=== PATIENT | male | born 1985 | race Caucasian/White ===

== ENCOUNTER 2020-01-04 02:38 | Outpatient (CLI) | payer BC, SELFPAY ==
[2020-01-04 21:22] LABS: SARS-CoV-2 RNA PCR Negative
== END 2020-01-04 02:39 | disposition home or self-care (01) ==
LOC: ANHCOVIDDT 02:39
PROVIDERS: PCP Family Medicine; Visit Provider Internal Medicine Gastroenterology
DX: Z01.812 Encounter for preprocedural laboratory examination (principal); Z20.828 Contact with and (suspected) exposure to other viral communicable diseases
CPT/HCPCS: 87635; C9803; U0003

== ENCOUNTER 2020-01-07 01:39 | Day surgery (SDC) | payer BC, SELFPAY ==
[2020-01-01 13:04] VITALS: BMI 35.4
[2020-01-07 13:08] VITALS: BP 149/73; PULSE 82; RESP 16; TEMP 36.7; O2SAT 99
[2020-01-07] MEDS: LACTATED RINGERS 1,000 ML 150 ML IV CONT (13:10)
--- NOTE | 2020-01-07 13:10 | PM.HPGS ---
History of Present Illness History of Present Illness Consent: Risks, benefits, and alternatives have been discussed and questions answered. Patient agrees to proceed with procedure. Chief complaint: Gerd, Neoplasm Screening Narrative: Kristofer Rincon is a 34 year old male with belching better on omeprazole, also had rectal bleeding and mother had colon cancer. Review of Systems Constitutional: Constitutional: Denies headache(s) and Denies weakness Eyes: Eyes: Denies blurry vision ENT: Reports Normal hearing present, Denies headache(s) and Denies neck pain Cardiovascular: Cardiovascular: Denies chest pain and Denies dyspnea Respiratory: Respiratory: Denies dyspnea Gastrointestinal: Gastrointestinal: Reports no additional gastrointestinal complaints Genitourinary: Genitourinary: Denies dysuria Musculoskeletal: Musculoskeletal: Denies neck pain Integumentary/Breasts: Skin/Breast: Denies dry skin Neurologic: Reports Normal hearing present, Denies headache(s) and Denies weakness Psychiatric: Psychiatric: Denies anxiety Endocrine: Endocrine: Denies change in body appearance Hematologic/Lymphatic: Hematologic/Lymphatic: Denies easy bleeding Allergic/Immunologic: Allergic/Immunologic: Denies urticaria PMF Past Medical History Medical History (Updated 12/03/19 @ 09:47 by Azael Cruz MD) Acquired hypothyroidism Allergic rhinitis Asthma Dyslipidemia Eczema GERD (gastroesophageal reflux disease) HTN (hypertension) Obesity (BMI 30-39.9) BRINA (obstructive sleep apnea) Type 2 diabetes mellitus without complications Surgical History Surgical History (Updated 12/03/19 @ 09:13 by Maria Moulton CMA) History of hernia surgery Family History Family History Mother Hypertension Carcinoma of colon Diabetes mellitus Father Asthma Family history of diabetes mellitus in first degree relative Diabetes mellitus Other Family history of cardiovascular disease Family history of malignant neoplasm Social History Social History Smoking status: Never smoker Second hand tobacco smoke exposure: No Alcohol intake: never Substance use: never Substance use type: does not use Living arrangements: with family Gender identity (if verbalized by the patient): Male Spiritual care concerns: No Meds Home Medications and Allergies Home Medications Medication Instructions Recorded Confirmed Type blood-glucose meter #1 each 02/20/19 12/03/19 Rx albuterol sulfate 90 mcg/actuation 1 inhalation INHALATION Q4H PRN 03/10/19 01/01/20 History aerosol inhaler montelukast 10 mg tablet 10 mg PO DAILY #90 tablet 05/25/19 01/01/20 Rx rosuvastatin 10 mg tablet 10 mg PO DAILY #90 tablet 06/25/19 01/01/20 Rx levothyroxine 150 mcg tablet 150 mcg PO DAILY #30 tablet 09/07/19 01/07/20 Rx lisinopril 10 mg tablet 10 mg PO DAILY #30 tablet 09/07/19 01/01/20 Rx empagliflozin 25 mg tablet 25 mg PO QAM #30 tablet 10/20/19 01/01/20 Rx fluticasone furoate 100 1 inhalation INHALATION Q24H #60 10/21/19 01/01/20 Rx mcg-vilanterol 25 mcg/dose each inhalation powder metformin 500 mg tablet,extended 2,000 mg PO QPM #360 tablet 12/07/19 01/01/20 Rx release 24hr omeprazole 40 mg capsule,delayed 40 mg PO DAILY #30 cap 12/07/19 01/01/20 Rx release loratadine [Claritin] 10 mg PO DAILY 01/01/20 01/01/20 History multivitamin with minerals [All 1 tablet PO DAILY 01/01/20 01/01/20 History Purpose Multivitamin-Min] Allergies Allergy/AdvReac Type Severity Reaction Status Date / Time Honey Bee Allergy Mild Swelling Uncoded 01/07/20 13:07 Vital Signs Vital Signs - 24 hr 01/07/20 13:08 Temperature 98.1 F Pulse Rate 82 Respiratory Rate 16 Blood Pressure 149/73 H Pulse Oximetry 99 Exam Const: General: comfortable and no acute distress HENMT: General nose exam
--- NOTE | 2020-01-07 13:12 | WPDANESEPPF ---
Anes - Initial Pre Proc Eval Procedure: Operation Date: 01/07/20 14:00 Proposed Procedures p Esophagogastroduodenoscopy & Screening Colonoscopy - Azael Cruz MD Date/Time: 01/07/20 13:12 Surgeon: Azael Cruz MD Pre Op Diagnosis: Gerd, Neoplasm Screening Patient Data Age: 34 Gender: M Height: 5 ft 9 in Weight: 109.3 kg Last Vital Signs Temp 98.1 F 01/07/20 13:08 Pulse 82 01/07/20 13:08 Resp 16 01/07/20 13:08 BP 149/73 H 01/07/20 13:08 Pulse Ox 99 01/07/20 13:08 Allergies Allergy/AdvReac Type Severity Reaction Status Date / Time Honey Bee Allergy Mild Swelling Uncoded 01/07/20 13:07 Home Medications Medication Instructions Recorded Confirmed Type blood-glucose meter #1 each 02/20/19 12/03/19 Rx albuterol sulfate 90 mcg/actuation 1 inhalation INHALATION Q4H PRN 03/10/19 01/01/20 History aerosol inhaler montelukast 10 mg tablet 10 mg PO DAILY #90 tablet 05/25/19 01/01/20 Rx rosuvastatin 10 mg tablet 10 mg PO DAILY #90 tablet 06/25/19 01/01/20 Rx levothyroxine 150 mcg tablet 150 mcg PO DAILY #30 tablet 09/07/19 01/07/20 Rx lisinopril 10 mg tablet 10 mg PO DAILY #30 tablet 09/07/19 01/01/20 Rx empagliflozin 25 mg tablet 25 mg PO QAM #30 tablet 10/20/19 01/01/20 Rx fluticasone furoate 100 1 inhalation INHALATION Q24H #60 10/21/19 01/01/20 Rx mcg-vilanterol 25 mcg/dose each inhalation powder metformin 500 mg tablet,extended 2,000 mg PO QPM #360 tablet 12/07/19 01/01/20 Rx release 24hr omeprazole 40 mg capsule,delayed 40 mg PO DAILY #30 cap 12/07/19 01/01/20 Rx release loratadine [Claritin] 10 mg PO DAILY 01/01/20 01/01/20 History multivitamin with minerals [All 1 tablet PO DAILY 01/01/20 01/01/20 History Purpose Multivitamin-Min] Patient hx anesthesia problems: none Family hx anesthesia problems: none PMFSH Past Medical History Medical History (Updated 12/03/19 @ 09:47 by Azael Cruz MD) Acquired hypothyroidism Allergic rhinitis Asthma Dyslipidemia Eczema GERD (gastroesophageal reflux disease) HTN (hypertension) Obesity (BMI 30-39.9) BRINA (obstructive sleep apnea) Type 2 diabetes mellitus without complications Surgical History Surgical History (Updated 12/03/19 @ 09:13 by Maria Moulton [facility]) History of hernia surgery Family History Family History (Reviewed 12/03/19 @ 09:13 by Maria Moulton [facility]) Mother Hypertension Carcinoma of colon Diabetes mellitus Father Asthma Family history of diabetes mellitus in first degree relative Diabetes mellitus Other Family history of cardiovascular disease Family history of malignant neoplasm Social History Social History (Reviewed 12/03/19 @ 09:13 by Maria Moulton [facility]) Smoking status: Never smoker Second hand tobacco smoke exposure: No Alcohol intake: never Substance use: never Substance use type: does not use Living arrangements: with family Gender identity (if verbalized by the patient): Male Spiritual care concerns: No Anes - Eval Final PreProcedure Day of Procedure 01/07/20 13:12 Patient weight: obese Heart: regular rate and rhythm Lungs: clear to auscultation Airway: Mallampati scale class II Neurological: alert and oriented Last oral intake: >/= 8 hours ASA classification: III Emergent: no Anesthetic plan: proceed Anesthesia type and monitoring: general GIVS and standard monitoring Informed Consent: The patient's anesthetic plan and its attendant risks and benefits were discussed with the patient/family/POA. Questions were solicited and answers provided to the satisfaction of the patient/family/POA.
[2020-01-07 13:15] LABS: Glucose Point of Care 96 (65-105)
[2020-01-07] MEDS: BENZOCAINE (*SP) 60 ML SPRAY CAN (HURRICAINE) 1 SPRAY MUCOUS MEM (13:17)
--- NOTE | 2020-01-07 13:31 | SUR.OPER ---
EGD ENDED 132, COLONOSCOPY STARED 1330
[2020-01-07 13:43] VITALS: BP 110/56; PULSE 94; RESP 18; O2SAT 99
[2020-01-07 13:53] VITALS: BP 114/68; PULSE 91; RESP 22; O2SAT 100
[2020-01-07 14:03] VITALS: BP 130/79; PULSE 91; RESP 22; O2SAT 100
== END 2020-01-07 14:15 | disposition home or self-care (01) ==
PROVIDERS: PCP Family Medicine; Visit Provider Internal Medicine Gastroenterology
PROC: 0DJ08ZZ Inspection of Upper Intestinal Tract, Via Natural or Artificial Opening Endoscopic (ICD-10-PCS; CPT 43235; principal; 2020-01-07 14:00)
DX: Z12.11 Encounter for screening for malignant neoplasm of colon (principal); D12.5 Benign neoplasm of sigmoid colon; K64.8 Other hemorrhoids; Z80.0 Family history of malignant neoplasm of digestive organs; K29.50 Unspecified chronic gastritis without bleeding; K21.9 Gastro-esophageal reflux disease without esophagitis; I10 Essential (primary) hypertension; E78.5 Hyperlipidemia, unspecified; E11.9 Type 2 diabetes mellitus without complications; G47.33 Obstructive sleep apnea (adult) (pediatric); E03.9 Hypothyroidism, unspecified; J45.909 Unspecified asthma, uncomplicated; E66.9 Obesity, unspecified; Z68.35 Body mass index [BMI] 35.0-35.9, adult; Z79.84 Long term (current) use of oral hypoglycemic drugs
CPT/HCPCS: 45385; 43239; 88305; J2704; J7120

== ENCOUNTER 2022-04-11 15:25 | Outpatient (CLI) | payer BC, SELFPAY ==
[2022-04-11 16:22] LABS: Basophils Absolute Auto 0.1 K/mm3 (0.0-0.1); Basophils Percent Auto 0.8 % (0.2-1.2); Eosinophils Absolute Auto 0.7 K/mm3 (0-0.3); Hematocrit 41.3 % (42.0-52.0); Hemoglobin 14.5 g/dL (14.0-18.0); Immature Granulocyte Absolute 0.04 K/mm3 (0.00-0.031); Immature Granulocyte Percent A 0.4 % (0-0.5); Lymphocytes Percent Auto 31.5 % (18.3-44.2); Mean Corpuscular HGB Conc 35.1 g/dl (32-36); Mean Corpuscular Hemoglobin 30.7 pg (26-34); Mean Corpuscular Volume 87.3 fl (80-100); Mean Platelet Volume 9.1 fl (7.4-10.4); Monocytes Absolute Auto 0.9 K/mm3 (0.1-0.6); Monocytes Percent Auto 7.7 % (2.6-8.5); Neutrophils Percent Auto 53.6 % (45.5-73.1); Platelet Count Result 256 k/mm3 (150-375); Red Blood Count 4.73 M/mm3 (4.6-6.20); Red Cell Distribution Width 11.9 % (11.5-14.5); White Blood Count 11.1 K/mm3 (4.5-10.0)
[2022-04-11 16:34] LABS: Alanine Aminotransferase 42 U/L (6-50); Albumin Level 4.9 g/dL (3.5-5.1); Alkaline Phosphatase 67 U/L (38-126); Anion Gap 7 mmol/L (8-16); Aspartate Amino Transferase 35 U/L (17-59); Bilirubin,Total 0.5 mg/dL (0.2-1.3); Blood Urea Nitrogen 24 mg/dL (9-20); Calcium 9.2 mg/dL (8.4-10.2); Carbon Dioxide 28 mmol/L (22-30); Chloride 100 mmol/L (98-107); Estimated Glomerular Filt Rate > 60; Glucose 93 mg/dL (65-110); Potassium 4.1 mmol/L (3.4-5.0); Sodium 135 mmol/L (137-145)
== END 2022-04-11 15:26 | disposition home or self-care (01) ==
LOC: ANHLAB 15:27
PROVIDERS: PCP Family Medicine; Visit Provider Physician Assistant
DX: Z20.9 Contact with and (suspected) exposure to unspecified communicable disease (principal); I10 Essential (primary) hypertension
CPT/HCPCS: 36415; 80053; 85025

== ENCOUNTER 2024-06-09 09:02 | Emergency (ER) | payer BC, SELFPAY ==
--- NOTE | ~2024-06-09 | CT_ITS ---
EXAMINATION: CT abdomen pelvis w con DATE: 06/09/2024 10:29 INDICATION: Epigastric pain TECHNIQUE: Computed tomography (CT) of the abdomen and pelvis was performed with 100 mL Omnipaque-350 intravenous contrast. Automated exposure control and iterative reconstruction technique were employe d. The dose-length product was 797.03 mGy-cm. COMPARISON: 12/19/2015 FINDINGS: Lung bases are clear. Heart size is normal. No pericardial or pleural effusion. Liver, gallbladder, p ancreas, bilateral adrenal glands and kidneys are normal. A few splenic calcification consistent with old granulomatous disease. Bowels including the appendix are normal. Bladder is normal. No free intr aperitoneal gas or fluid. No pathologically enlarged abdominal or pelvic lymphadenopathy. Minimal sca ttered degenerative skeletal changes in the spine and pelvis. IMPRESSION: 1. No acute intra-abdominal/pelvic process. Reviewed, dictated and finalized at location A.
[2024-06-09 09:18] VITALS: BP 139/85; PULSE 96; RESP 16; TEMP 36.6; O2SAT 99
[2024-06-09 09:40] LABS: Basophils Percent Auto 0.1 % (0.2-1.2); Eosinophils Absolute Auto 0.5 K/mm3 (0-0.3); Eosinophils Percent Auto 7.7 % (0-4.4); Hematocrit 42.5 % (42.0-52.0); Hemoglobin 14.7 g/dL (14.0-18.0); Immature Granulocyte Absolute 0.02 K/mm3 (0.00-0.031); Immature Granulocyte Percent A 0.3 % (0-0.5); Lymphocytes Percent Auto 20.1 % (18.3-44.2); Mean Corpuscular HGB Conc 34.6 g/dl (32-36); Mean Corpuscular Hemoglobin 29.9 pg (26-34); Mean Corpuscular Volume 86.6 fl (80-100); Mean Platelet Volume 9.4 fl (7.4-10.4); Monocytes Absolute Auto 0.5 K/mm3 (0.1-0.6); Monocytes Percent Auto 6.6 % (2.6-8.5); Neutrophils Absolute Auto 4.5 K/mm3 (1.3-6.7); Neutrophils Percent Auto 65.2 % (45.5-73.1); Platelet Count Result 208 k/mm3 (150-375); Red Blood Count 4.91 M/mm3 (4.6-6.20); Red Cell Distribution Width 12.1 % (11.5-14.5)
[2024-06-09] MEDS: PANTOPRAZOLE SODIUM IV 40 MG VIAL IV PUSH (09:49)
[2024-06-09] MEDS: SODIUM CHLORIDE 0.9% IV 1,000 ML 999 ML IV CONT (09:49)
[2024-06-09] MEDS: ONDANSETRON INJ 4 MG/2 ML VIAL IV PUSH (09:50)
[2024-06-09 09:56] LABS: Alanine Aminotransferase 31 U/L (6-50); Albumin Level 4.4 g/dL (3.5-5.1); Alkaline Phosphatase 64 U/L (38-126); Anion Gap 11 mmol/L (4-12); Aspartate Amino Transferase 25 U/L (17-59); Bilirubin,Total 0.7 mg/dL (0.2-1.3); Blood Urea Nitrogen 22 mg/dL (9-20); Carbon Dioxide 26 mmol/L (22-30); Chloride 103 mmol/L (98-107); Estimated CRCL calculation 106 ml/min; Estimated Glomerular Filt Rate > 60; Glucose 203 mg/dL (65-110); Lipase 123 U/L (23-300); Sodium 140 mmol/L (137-145)
--- NOTE | 2024-06-09 10:06 | ED_ITS ---
HPI - Abdominal Pain General Chief Complaint: Abdominal Pain Stated Complaint: abd pain Time Seen by Provider: 06/09/24 09:03 Source: patient Mode of arrival: ambulatory Limitations: no limitations History of Present Illness HPI narrative: This is a 38 year old male that presents to the ER for epigastric pain. Ongoing over the last week. Reports feeling like he has a lot of gas. He has been taking [id number] medications with some relief. Does report history of GERD and that he has a prescription for omeprazole, but is not currently taking it. Denies fevers, vomiting. Related Data Home Medications ?Medication ?Instructions ?Recorded ?Confirmed ?Last Taken ?Type multivitamin with minerals 1 tablet PO DAILY 01/01/20 03/24/24 03/23/24 History Allergies Allergy/AdvReac Type Severity Reaction Status Date / Time bee venom protein (honey bee) Allergy Unknown Verified 06/09/24 09:30 Review of Systems 2 Review of Systems: CONSTITUTIONAL: Denies fever GASTROINTESTINAL: Reports abdominal pain, nausea. Denies vomiting, or diarrhea. GENITOURINARY: Denies dysuria All systems reviewed & are unremarkable except as noted in HPI and below PMFSH Past Medical History Medical History Adenomatous colon polyp GERD (gastroesophageal reflux disease) Obesity (BMI 30-39.9) HTN (hypertension) Dyslipidemia Type 2 diabetes mellitus without complications Allergic rhinitis Asthma Acquired hypothyroidism BRINA (obstructive sleep apnea) Eczema Surgical History Surgical History History of hernia surgery Family History Family History Mother Hypertension Carcinoma of colon Diabetes mellitus Father Asthma Family history of diabetes mellitus in first degree relative Diabetes mellitus Other Family history of cardiovascular disease Family history of malignant neoplasm Social History Social History Smoking status: Never smoker Second hand tobacco smoke exposure: No Alcohol intake: never Alcohol use details: couple times a year Substance use: never Substance use type: does not use Living arrangements: with family Additional living arrangements comments: with children Occupation/Education: occupation Gender identity (if verbalized by the patient): Male Spiritual care concerns: No Exam 2 Narrative: GENERAL: Well-appearing, well-nourished, and in no acute distress. HEAD: Normocephalic, atraumatic. EYES: EOMI. CHEST: Clear to auscultation. No respiratory distress. No wheezes rales or rhonchi HEART: Regular rate and rhythm. No murmur heard. Normal peripheral pulses. ABDOMEN: Soft, nondistended, normal active bowel sounds. Mild tenderness to palpation in the epigastrium, without guarding EXTREMITIES: Normal range of motion. No edema. SKIN: Warm, dry, no rash. NEURO: No focal deficits. Alert and oriented x3. PSYCH: Normal mood and affect Course Course Emergency Course: Patient updated on his workup and agrees with plan of care Vital Signs Vital signs: Vital Signs Temperature 97.9 F 06/09/24 09:18 Pulse Rate 96 06/09/24 09:18 Respiratory Rate 16 06/09/24 09:18 Blood Pressure 139/85 06/09/24 09:18 Pulse Oximetry 99 06/09/24 09:18 Oxygen Delivery Room Air 06/09/24 09:18 Temperature 97.9 F 06/09/24 09:18 Pulse Rate 96 06/09/24 09:18 Respiratory Rate 16 06/09/24 09:18 Blood Pressure 139/85 06/09/24 09:18 Pulse Oximetry 99 06/09/24 09:18 Oxygen Delivery Room Air 06/09/24 09:18 MDM - Abdominal Pain MDM Narrative Medical decision making narrative: Patient presents the emergency department for abdominal pain, nausea. Ongoing over the last week. Reports relief with [id number] antacids. He is afebrile and nontoxic appearing. His vitals are stable. Cbc without leukocytosis. Metabolic panel without concerning findings. Lipase is normal. Urine without evidence of infection. CT abdomen pelvis without acute findings. Patient does report history of GERD, has prescription for omeprazole but is not currently taking it. He was encouraged to restart this medication have follow- up with his primary provider. He was given warnings to return to the ER Differential Diagnosis Differential diagnosis: Likely abdominal pain, pancreatitis and other (GERD, peptic ulcer disease, biliary colic) Lab Data Attestation: I reviewed the patient's lab results. 06/09/24 09:31 06/09/24 09:31 Labs: Lab Results 06/09/24 Range/Units 09:31 WBC 7.0 (4.5-10.0) K/mm3 RBC 4.91 (4.6-6.20) M/mm3 Hgb 14.7 (14.0-18.0) g/dL Hct 42.5 (42.0-52.0) % MCV 86.6 (80-100) fl MCH 29.9 (26-34) pg MCHC 34.6 (32-36) g/dl RDW 12.1 (11.5-14.5) % Plt Count 208 (150-375) k/mm3 MPV 9.4 (7.4-10.4) fl Immature Gran % (Auto) 0.3 (0-0.5) % Neut % (Auto) 65.2 (45.5-73.1) % Lymph % (Auto) 20.1 (18.3-44.2) % [place] % (Auto) 6.6 (2.6-8.5) % Eos % (Auto) 7.7 H (0-4.4) % Baso % (Auto) 0.1 L (0.2-1.2) % Lymph # (Auto) 1.40 (0.9-3.2) K/mm3 [place] # (Auto) 0.5 (0.1-0.6) K/mm3 Eos # (Auto) 0.5 H (0-0.3) K/mm3 Baso # (Auto) 0.0 (0.0-0.1) K/mm3 Abs Immat Gran (auto) 0.02 (0.00-0.031) K/mm3 Absolute Neuts (auto) 4.5 (1.3-6.7) K/mm3 Absolute Nucleated RBC 0.000 (0.0-0.012) K/mm3 Nucleated RBC % 0.0 (0.0-0.2) % Sodium 140 (137-145) mmol/L Potassium 4.0 (3.4-5.0) mmol/L Chloride 103 (98-107) mmol/L Carbon Dioxide 26 (22-30) mmol/L Anion Gap 11 (4-12) mmol/L BUN 22 H (9-20) mg/dL Creatinine 0.87 (0.7-1.3) mg/dL Estim Creat Clear Calc 106 ml/min Estimated GFR > 60 (59 - ) Glucose 203 H (65-110) mg/dL Calcium 9.0 (8.4-10.2) mg/dL Total Bilirubin 0.7 (0.2-1.3) mg/dL AST 25 (17-59) U/L ALT 31 (6-50) U/L Alkaline Phosphatase 64 (38-126) U/L Total Protein 7.0 (6.3-8.2) g/dL Albumin 4.4 (3.5-5.1) g/dL Lipase 123 (23-300) U/L Urine Color Yellow (Yellow) Urine Appearance Cloudy H (Clear) Urine pH 5.0 (5.0-9.0) Ur Specific [place] 1.031 (1.001-1.035) Urine Protein Negative (Negative) mg/dL Urine Glucose (UA) Negative (Negative) mg/dL Urine Ketones Trace H (Negative) mg/dL Ur Blood (Man) Negative (Negative) Urine Nitrate Negative (Negative) Urine Bilirubin Negative (Negative) Urine Urobilinogen 0.2 (<2.0) mg/dL Add Ur Microanalysis Reviewed Leukocyte Esterase Rfl Negative (Negative) SOLITARIO/UL Urine RBC 0-2 (0-2) /hpf Urine WBC 0-5 (0-3) /hpf Ur Squamous Epith Cells None seen (Few) /hpf Urine Bacteria None seen /hpf Urine Casts 3-5 Imaging Data Radiologist's impression: ITS Impressions Abdomen/Pelvis CT 06/09/24 10:31 IMPRESSION: 1. No acute intra-abdominal/pelvic process. Critical Care Time Critical Care Time Critical Care Time: No Discharge Plan Discharge Clinical Impression: Abdominal pain, epigastric Patient Disposition: Home Condition: Stable Instructions: GERD (Gastroesophageal Reflux Disease) (ED), Abdominal Pain (ED) Additional Instructions: Return to the ER if you experience fever, abdominal pain with nausea and vomiting, you are unable to keep down liquids or solids, or any other symptoms that are concerning to you Remain well hydrated. Avoid spicy/acidic foods. Avoid eating just before bedtime. Avoid alcohol. Avoid anti-inflammatories (Aleve, Ibuprofen, naproxen, etc). Take omeprazole as prescribed. Pepcid as needed Your blood work and imaging are reassuring today Follow up with your primary care doctor Patient Language: [place]arag[place] Prescriptions: No Action All Purpose Multivitamin-Min Tablet 1 tablet PO DAILY (DME) blood-glucose meter [OneTouch Ultra2 Meter] [facility] [place] See Rx Instructions .ROUTE .MEDSUPPLY Qty: 1 0RF Rx Instructions: As directed to check blood sugar once daily levothyroxine 150 mcg tablet See Rx Instructions .ROUTE .COMPLEX Qty: 90 2RF Dose Instruction: TAKE 1 TABLET BY MOUTH DAILY Rx Instructions: TAKE 1 TABLET BY MOUTH DAILY bupropion HCl 300 mg tablet extended release 24 hr See Rx Instructions .ROUTE .COMPLEX Qty: 90 0RF Dose Instruction: TAKE 1 TABLET BY MOUTH EVERY MORNING Rx Instructions: TAKE 1 TABLET BY MOUTH EVERY MORNING rosuvastatin 10 mg tablet See Rx Instructions .ROUTE .COMPLEX Qty: 90 2RF Dose Instruction: TAKE 1 TABLET BY MOUTH DAILY Rx Instructions: TAKE 1 TABLET BY MOUTH DAILY montelukast 10 mg tablet See Rx Instructions .ROUTE .COMPLEX Qty: 90 2RF Dose Instruction: Take 1 tablet by mouth once daily Rx Instructions: Take 1 tablet by mouth once daily tirzepatide 15 mg/0.5 mL pen injector 15 mg subcut WEEKLY Qty: 4 1RF albuterol sulfate 90 mcg/actuation HFA aerosol inhaler 1 inh INHALATION Q4-6H PRN (Reason: Wheezing) Qty: 8.5 0RF lisinopril 10 mg tablet See Rx Instructions .ROUTE .COMPLEX Qty: 90 0RF Dose Instruction: Take 1 tablet by mouth once daily Rx Instructions: Take 1 tablet by mouth once daily sertraline 100 mg tablet See Rx Instructions .ROUTE .COMPLEX Qty: 90 0RF Dose Instruction: TAKE 1 TABLET BY MOUTH DAILY Rx Instructions: TAKE 1 TABLET BY MOUTH DAILY atomoxetine [Strattera] 60 mg capsule 60 mg PO QAM Qty: 30 1RF Follow-up/Referrals: Bashir Rodriguez MD [Primary Care Provider] -
[2024-06-09 10:07] LABS: Add Urine Microscopic? YES; Appearance Urine Cloudy (Clear); Bacteria Urine None Seen /hpf; Bilirubin Urine Negative (Negative); Blood Urine Negative (Negative); Color Urine Yellow (Yellow); Glucose Urine UA Negative (Negative); Ketones Urine Trace mg/dL (Negative); Leukocyte Esterase Ur Negative LEU/UL (Negative); Need Manual Microscopic Reviewed; Nitrate Urine Negative (Negative); Protein Urine Negative (Negative); RBC Urine 0-2 /hpf (0-2); Specific Grav Ur 1.031 (1.001-1.035); Squamous Epithelial Cell Urine None Seen /hpf (Few); Urobilinogen Urine 0.2 mg/dL (<2.0); WBC Urine 0-5 /hpf (0-3)
== END 2024-06-09 11:23 | disposition home or self-care (01) ==
PROVIDERS: Emergency Provider Physician Assistant; PCP Family Medicine
DX: R10.13 Epigastric pain (principal); K21.9 Gastro-esophageal reflux disease without esophagitis; I10 Essential (primary) hypertension; E78.5 Hyperlipidemia, unspecified; E11.9 Type 2 diabetes mellitus without complications; J45.909 Unspecified asthma, uncomplicated; E03.9 Hypothyroidism, unspecified; G47.30 Sleep apnea, unspecified
CPT/HCPCS: 36415; 74177; 80053; 81001; 83690; 85025; 96361; 96374; 96375; 99284; J2405; J2470; J7030; Q9967

== ENCOUNTER 2024-06-10 01:43 | Emergency (ER) | payer BC, SELFPAY ==
[2024-06-10 01:48] VITALS: BP 147/88; PULSE 91; RESP 15; TEMP 36.2; O2SAT 100
[2024-06-10 01:55] VITALS: BP 126/74; PULSE 97; RESP 17; TEMP 36.6; O2SAT 98
--- NOTE | 2024-06-10 01:55 | ED.GENADULT ---
HPI - General Adult General Chief complaint: Abdominal Pain <CRIS Berman Last Filed: 06/10/24 03:43> Stated complaint: abdominal pain, n/v <CRIS Berman Last Filed: 06/10/24 03:43> Time Seen by Provider: 06/10/24 01:50 <CRIS Berman Last Filed: 06/10/24 03:43> Source: patient <CRIS Berman Last Filed: 06/10/24 03:43> Mode of arrival: ambulatory <CRIS Berman Last Filed: 06/10/24 03:43> Limitations: no limitations <CRIS Berman Last Filed: 06/10/24 03:43> History of Present Illness HPI narrative: This is a 38-year-old male who presents to the ED for chief complaint of upper abdominal pain and is/B. He was seen at this department earlier this morning with the same symptoms. States he was told to come back if it happens again. States that he was told he had GERD. States that he took dose of omeprazole but did have 3 episodes of vomiting. Patient unable to describe the pain and states ?I don't know, it is just pain. ? <Kenrick Wheatley PA-C - Last Filed: 06/10/24 03:43> Related Data Home medications: Home Medications ?Medication ?Instructions ?Recorded ?Confirmed ?Last Taken ?Type multivitamin with minerals 1 tablet PO DAILY 01/01/20 03/24/24 03/23/24 History <CRIS Berman Last Filed: 06/10/24 03:43> Allergies/adverse reactions: Allergies Allergy/AdvReac Type Severity Reaction Status Date / Time bee venom protein (honey bee) Allergy Unknown Verified 06/10/24 01:47 <CRIS Berman Last Filed: 06/10/24 03:43> Review of Systems Review of Systems: All systems as dictated in HPI <CRIS Berman Last Filed: 06/10/24 03:43> [facility] Past Medical History Medical History: Medical History Adenomatous colon polyp GERD (gastroesophageal reflux disease) Obesity (BMI 30-39.9) HTN (hypertension) Dyslipidemia Type 2 diabetes mellitus without complications Allergic rhinitis Asthma Acquired hypothyroidism BRINA (obstructive sleep apnea) Eczema <Kenrick Wheatley PA-C - Last Filed: 06/10/24 03:43> Surgical History Surgical History: Surgical History History of hernia surgery <Kenrick Wheatley PA-C - Last Filed: 06/10/24 03:43> Family History Family History: Family History Mother Hypertension Carcinoma of colon Diabetes mellitus Father Asthma Family history of diabetes mellitus in first degree relative Diabetes mellitus Other Family history of cardiovascular disease Family history of malignant neoplasm <Kenrick Wheatley PA-C - Last Filed: 06/10/24 03:43> Social History Social History: Social History (Updated 06/09/24 @ 15:11 by Kristen Stevenson) Social History: Smoking status: Never smoker Second hand tobacco smoke exposure: No Alcohol intake: never Alcohol use details: couple times a year Substance use: never Substance use type: does not use Do You Feel Safe in your Home?: Yes Lack of Transportation: No Lack of Food: Never True Current Housing: I Have Housing Concerned About Future Housing: No Difficulty Paying Gas/Electric Bills: No Difficulty Paying for Meds: No Currently Unemployed: No Education: Don't Know Difficulty w/ Childcare or Family Care: No Living arrangements: with family Additional living arrangements comments: with children Occupation/Education: occupation Gender identity (if verbalized by the patient): Male Sexual Orientation (if Verbalized by the Patient): Straight or Heterosexual Spiritual care concerns: No <CRIS Berman Last Filed: 06/10/24 03:43> Exam Narrative: GENERAL: Well-appearing, well-nourished, and in no acute distress. HEAD: Normocephalic, atraumatic. EYES: PERRLA and EOMI. ENT: Nares clear, no rhinorrhea or epistaxis. Mucous membranes moist. Oropharynx without tonsillar hypertrophy exudate or other lesions. NECK: Supple. No adenopathy or masses. CHEST: No respiratory distress. Clear to auscultation. No wheezes rales or rhonchi HEART: Regular rate and rhythm. No murmur heard. Normal peripheral pulses. ABDOMEN: Soft, nontender, nondistended, normal active bowel sounds. MSK: Normal range of motion. No edema. SKIN: Warm, dry, no rash. NEURO: Alert and oriented x4. No focal deficits. PSYCH: Normal mood and affect. <Kenrick Wheatley PA-C - Last Filed: 06/10/24 03:43> Course [employer]/PA Physician Supervision For this patient encounter, I reviewed the [employer] or PA documentation, treatment plan, and medical decision making; and I had [id number] time with this patient. <Axel Bailey MD - Last Filed: 06/10/24 04:51> Vital Signs Vital signs: Vital Signs Temperature 36.2 C L 06/10/24 01:48 Pulse Rate 91 06/10/24 01:48 Respiratory Rate 15 06/10/24 01:48 Blood Pressure 147/88 H 06/10/24 01:48 Pulse Oximetry 100 06/10/24 01:48 Oxygen Delivery Room Air 06/10/24 01:48 Temperature 36.6 C 06/10/24 01:55 Pulse Rate 94 06/10/24 03:29 Respiratory Rate 20 06/10/24 03:29 Blood Pressure 139/88 06/10/24 03:29 Pulse Oximetry 100 06/10/24 03:29 Oxygen Delivery Room Air 06/10/24 01:48 <Kenrick Wheatley PA-C - Last Filed: 06/10/24 03:43> Vital Signs Temperature 36.2 C L 06/10/24 01:48 Pulse Rate 91 06/10/24 01:48 Respiratory Rate 15 06/10/24 01:48 Blood Pressure 147/88 H 06/10/24 01:48 Pulse Oximetry 100 06/10/24 01:48 Oxygen Delivery Room Air 06/10/24 01:48 Temperature 36.6 C 06/10/24 01:55 Pulse Rate 94 06/10/24 03:29 Respiratory Rate 20 06/10/24 03:29 Blood Pressure 139/88 06/10/24 03:29 Pulse Oximetry 100 04/23/25 03:29 Oxygen Delivery Room Air 06/10/24 01:48 <Axel Bailey MD - Last Filed: 06/10/24 04:51> Medical Decision Making MDM Narrative Medical decision making narrative: This is a 38-year-old male who presents to the ED for chief complaint of upper abdominal pain. Vitals are normal. Exam unremarkable. No focal abdominal tenderness. Patient had full abdominal workup including CT scan earlier today with no acute findings. His presentation is most likely consistent with gastritis. Lab work repeated today. Patient was given GI cocktail, Bentyl, Zofran, Toradol, Pepcid. Tried additional GI cocktails well as Reglan with minimal relief. Patient will need to be admitted for intractable nausea and vomiting in the setting of dyspepsia. He is understanding and agreeable with plan. Talk to the hospitalist who recommends admission to medical floor and recommends adding urine drug screen. <Kenrick Wheatley PA-C - Last Filed: 06/10/24 03:43> This is a 38-year-old male who presents to the ED for chief complaint of upper abdominal pain. Vitals are normal. Exam unremarkable. No focal abdominal tenderness. Patient had full abdominal workup including CT scan earlier today with no acute findings. His presentation is most likely consistent with gastritis. Lab work repeated today. Patient was given GI cocktail, Bentyl, Zofran, Toradol, Pepcid. Tried additional GI cocktails well as Reglan with minimal relief. Patient will need to be admitted for intractable nausea and vomiting in the setting of dyspepsia. He is understanding and agreeable with plan. Talk to the hospitalist who recommends admission to medical floor and recommends adding urine drug screen. patient was admitted evaluating for a bed and the patient reports that he started feeling much better and would like to attempt outpatient management <Axel Bailey MD - Last Filed: 06/10/24 04:51> Vital Signs Vital Signs: Vital Signs Temperature 36.2 C L 06/10/24 01:48 Pulse Rate 91 06/10/24 01:48 Respiratory Rate 15 06/10/24 01:48 Blood Pressure 147/88 H 06/10/24 01:48 Pulse Oximetry 100 06/10/24 01:48 Oxygen Delivery Room Air 06/10/24 01:48 Temperature 36.6 C 06/10/24 01:55 Pulse Rate 94 06/10/24 03:29 Respiratory Rate 20 06/10/24 03:29 Blood Pressure 139/88 06/10/24 03:29 Pulse Oximetry 100 06/10/24 03:29 Oxygen Delivery Room Air 06/10/24 01:48 <Kenrick Wheatley PA-C - Last Filed: 06/10/24 03:43> Vital Signs Temperature 36.2 C L 06/10/24 01:48 Pulse Rate 91 06/10/24 01:48 Respiratory Rate 15 06/10/24 01:48 Blood Pressure 147/88 H 06/10/24 01:48 Pulse Oximetry 100 06/10/24 01:48 Oxygen Delivery Room Air 06/10/24 01:48 Temperature 36.6 C 06/10/24 01:55 Pulse Rate 94 06/10/24 03:29 Respiratory Rate 20 06/10/24 03:29 Blood Pressure 139/88 06/10/24 03:29 Pulse Oximetry 100 06/10/24 03:29 Oxygen Delivery Room Air 06/10/24 01:48 <Axel Bailey MD - Last Filed: 06/10/24 04:51> Lab Data Result diagrams: 06/10/24 02:03 06/10/24 02:03 <Kenrick Wheatley PA-C - Last Filed: 06/10/24 03:43> Labs: Lab Results 06/10/24 Range/Units 02:03 WBC 12.3 H (4.5-10.0) K/mm3 RBC 4.92 (4.6-6.20) M/mm3 Hgb 14.8 (14.0-18.0) g/dL Hct 42.0 (42.0-52.0) % MCV 85.4 (80-100) fl MCH 30.1 (26-34) pg MCHC 35.2 (32-36) g/dl RDW 12.2 (11.5-14.5) % Plt Count 218 (150-375) k/mm3 MPV 9.2 (7.4-10.4) fl Immature Gran % (Auto) 0.3 (0-0.5) % Neut % (Auto) 76.4 H (45.5-73.1) % Lymph % (Auto) 11.9 L (18.3-44.2) % [place] % (Auto) 7.6 (2.6-8.5) % Eos % (Auto) 3.6 (0-4.4) % Baso % (Auto) 0.2 (0.2-1.2) % Lymph # (Auto) 1.46 (0.9-3.2) K/mm3 [place] # (Auto) 0.9 H (0.1-0.6) K/mm3 Eos # (Auto) 0.4 H (0-0.3) K/mm3 Baso # (Auto) 0.0 (0.0-0.1) K/mm3 Abs Immat Gran (auto) 0.04 H (0.00-0.031) K/mm3 Absolute Neuts (auto) 9.4 H (1.3-6.7) K/mm3 Absolute Nucleated RBC 0.000 (0.0-0.012) K/mm3 Nucleated RBC % 0.0 (0.0-0.2) % Sodium 141 (137-145) mmol/L Potassium 3.5 (3.4-5.0) mmol/L Chloride 104 (98-107) mmol/L Carbon Dioxide 26 (22-30) mmol/L Anion Gap 11 (4-12) mmol/L BUN 18 (9-20) mg/dL Creatinine 0.84 (0.7-1.3) mg/dL Estim Creat Clear Calc 117 ml/min Estimated GFR > 60 (59 - ) Glucose 147 H (65-110) mg/dL Calcium 8.7 (8.4-10.2) mg/dL Total Bilirubin 0.6 (0.2-1.3) mg/dL Direct Bilirubin 0.0 (0-0.3) mg/dL AST 23 (17-59) U/L ALT 30 (6-50) U/L Alkaline Phosphatase 68 (38-126) U/L Total Protein 7.0 (6.3-8.2) g/dL Albumin 4.6 (3.5-5.1) g/dL Lipase 136 (23-300) U/L <Kenrick Wheatley PA-C - Last Filed: 06/10/24 03:43> Lab Results 06/10/24 Range/Units 02:03 WBC 12.3 H (4.5-10.0) K/mm3 RBC 4.92 (4.6-6.20) M/mm3 Hgb 14.8 (14.0-18.0) g/dL Hct 42.0 (42.0-52.0) % MCV 85.4 (80-100) fl MCH 30.1 (26-34) pg MCHC 35.2 (32-36) g/dl RDW 12.2 (11.5-14.5) % Plt Count 218 (150-375) k/mm3 MPV 9.2 (7.4-10.4) fl Immature Gran % (Auto) 0.3 (0-0.5) % Neut % (Auto) 76.4 H (45.5-73.1) % Lymph % (Auto) 11.9 L (18.3-44.2) % [place] % (Auto) 7.6 (2.6-8.5) % Eos % (Auto) 3.6 (0-4.4) % Baso % (Auto) 0.2 (0.2-1.2) % Lymph # (Auto) 1.46 (0.9-3.2) K/mm3 [place] # (Auto) 0.9 H (0.1-0.6) K/mm3 Eos # (Auto) 0.4 H (0-0.3) K/mm3 Baso # (Auto) 0.0 (0.0-0.1) K/mm3 Abs Immat Gran (auto) 0.04 H (0.00-0.031) K/mm3 Absolute Neuts (auto) 9.4 H (1.3-6.7) K/mm3 Absolute Nucleated RBC 0.000 (0.0-0.012) K/mm3 Nucleated RBC % 0.0 (0.0-0.2) % Sodium 141 (137-145) mmol/L Potassium 3.5 (3.4-5.0) mmol/L Chloride 104 (98-107) mmol/L Carbon Dioxide 26 (22-30) mmol/L Anion Gap 11 (4-12) mmol/L BUN 18 (9-20) mg/dL Creatinine 0.84 (0.7-1.3) mg/dL Estim Creat Clear Calc 117 ml/min Estimated GFR > 60 (59 - ) Glucose 147 H (65-110) mg/dL Calcium 8.7 (8.4-10.2) mg/dL Total Bilirubin 0.6 (0.2-1.3) mg/dL Direct Bilirubin 0.0 (0-0.3) mg/dL AST 23 (17-59) U/L ALT 30 (6-50) U/L Alkaline Phosphatase 68 (38-126) U/L Total Protein 7.0 (6.3-8.2) g/dL Albumin 4.6 (3.5-5.1) g/dL Lipase 136 (23-300) U/L <Axel Bailey MD - Last Filed: 06/10/24 04:51> Discharge Plan Discharge Clinical Impression: Dyspepsia, Intractable nausea and vomiting <Kenrick Wheatley PA-C - Last Filed: 06/10/24 03:43> Patient Disposition: Home <Kenrick Wheatley PA-C - Last Filed: 06/10/24 03:43> Condition: Stable <Kenrick Wheatley PA-C - Last Filed: 06/10/24 03:43> Instructions: Antibiotic Form, Indigestion (ED), Abdominal Pain (ED) <Kenrick Wheatley PA-C - Last Filed: 06/10/24 03:43> Patient Language: Greek <Kenrick Wheatley PA-C - Last Filed: 06/10/24 03:43> Prescriptions: New omeprazole 40 mg capsule,delayed release(DR/EC) 40 mg PO DAILY Qty: 30 0RF dicyclomine 10 mg capsule 10 mg PO QID Qty: 30 0RF ondansetron 4 mg tablet,disintegrating 4 mg PO Q8H PRN (Reason: nausea and vomiting) Qty: 10 0RF No Action All Purpose Multivitamin-Min Tablet 1 tablet PO DAILY (DME) blood-glucose meter [OneTouch Ultra2 Meter] Misc See Rx Instructions .ROUTE .MEDSUPPLY Qty: 1 0RF Rx Instructions: As directed to check blood sugar once daily levothyroxine 150 mcg tablet See Rx Instructions .ROUTE .COMPLEX Qty: 90 2RF Dose Instruction: TAKE 1 TABLET BY MOUTH DAILY Rx Instructions: TAKE 1 TABLET BY MOUTH DAILY bupropion HCl 300 mg tablet extended release 24 hr See Rx Instructions .ROUTE .COMPLEX Qty: 90 0RF Dose Instruction: TAKE 1 TABLET BY MOUTH EVERY MORNING Rx Instructions: TAKE 1 TABLET BY MOUTH EVERY MORNING rosuvastatin 10 mg tablet See Rx Instructions .ROUTE .COMPLEX Qty: 90 2RF Dose Instruction: TAKE 1 TABLET BY MOUTH DAILY Rx Instructions: TAKE 1 TABLET BY MOUTH DAILY montelukast 10 mg tablet See Rx Instructions .ROUTE .COMPLEX Qty: 90 2RF Dose Instruction: Take 1 tablet by mouth once daily Rx Instructions: Take 1 tablet by mouth once daily tirzepatide 15 mg/0.5 mL pen injector 15 mg subcut WEEKLY Qty: 4 1RF albuterol sulfate 90 mcg/actuation HFA aerosol inhaler 1 inh INHALATION Q4-6H PRN (Reason: Wheezing) Qty: 8.5 0RF lisinopril 10 mg tablet See Rx Instructions .ROUTE .COMPLEX Qty: 90 0RF Dose Instruction: Take 1 tablet by mouth once daily Rx Instructions: Take 1 tablet by mouth once daily sertraline 100 mg tablet See Rx Instructions .ROUTE .COMPLEX Qty: 90 0RF Dose Instruction: TAKE 1 TABLET BY MOUTH DAILY Rx Instructions: TAKE 1 TABLET BY MOUTH DAILY atomoxetine [Strattera] 60 mg capsule 60 mg PO QAM Qty: 30 1RF <Kenrick Wheatley PA-C - Last Filed: 06/10/24 03:43> Follow-up/Referrals: Bashir Rodriguez MD [Primary Care Provider] - <Kenrick Wheatley PA-C - Last Filed: 06/10/24 03:43> Time of Disposition: 03:30 <Kenrick Wheatley PA-C - Last Filed: 06/10/24 03:43> 03:30 <Axel Bailey MD - Last Filed: 06/10/24 04:51>
--- NOTE | 2024-06-10 02:04 | ECG_ITS ---
Test Date: 2024-06-10 02:14:32 Measurements Intervals [place] Rate: 89 P: 42 SC: 148 QRS: 46 QRSD: 80 T: 59 QT: 362 QTc: 443 Interpretive Statements SINUS RHYTHM EARLY PRECORDIAL R/S TRANSITION BORDERLINE ECG No previous ECG available for comparison Electronically Signed On 06-10-2024 06:39:59 CDT by Braulio Davies D.O.
[2024-06-10 02:07] LABS: Basophils Percent Auto 0.2 % (0.2-1.2); Eosinophils Absolute Auto 0.4 K/mm3 (0-0.3); Eosinophils Percent Auto 3.6 % (0-4.4); Hemoglobin 14.8 g/dL (14.0-18.0); Immature Granulocyte Absolute 0.04 K/mm3 (0.00-0.031); Immature Granulocyte Percent A 0.3 % (0-0.5); Lymphocytes Absolute Auto 1.46 K/mm3 (0.9-3.2); Lymphocytes Percent Auto 11.9 % (18.3-44.2); Mean Corpuscular HGB Conc 35.2 g/dl (32-36); Mean Corpuscular Hemoglobin 30.1 pg (26-34); Mean Corpuscular Volume 85.4 fl (80-100); Mean Platelet Volume 9.2 fl (7.4-10.4); Monocytes Absolute Auto 0.9 K/mm3 (0.1-0.6); Monocytes Percent Auto 7.6 % (2.6-8.5); Neutrophils Absolute Auto 9.4 K/mm3 (1.3-6.7); Neutrophils Percent Auto 76.4 % (45.5-73.1); Platelet Count Result 218 k/mm3 (150-375); Red Blood Count 4.92 M/mm3 (4.6-6.20); Red Cell Distribution Width 12.2 % (11.5-14.5); White Blood Count 12.3 K/mm3 (4.5-10.0)
[2024-06-10] MEDS: FAMOTIDINE 20 MG/2 ML VIAL IV PUSH (02:08)
[2024-06-10] MEDS: KETOROLAC 15 MG/ML VIAL (*BKC) IV PUSH (02:08)
[2024-06-10] MEDS: ONDANSETRON INJ 4 MG/2 ML VIAL IV PUSH (02:09)
[2024-06-10] MEDS: BELLADONNA ALK/PHENOB ELIX 10 ML, MAG HYDROX/ALUMINUM HYD/SIMETH 30 ML, LIDOCAINE 2% VI... PO ×2 (02:09→03:21)
[2024-06-10] MEDS: DICYCLOMINE HCL INJ 20 MG/2 ML VIAL IM (02:15)
[2024-06-10 02:17] LABS: Alanine Aminotransferase 30 U/L (6-50); Albumin Level 4.6 g/dL (3.5-5.1); Alkaline Phosphatase 68 U/L (38-126); Anion Gap 11 mmol/L (4-12); Aspartate Amino Transferase 23 U/L (17-59); Bilirubin,Total 0.6 mg/dL (0.2-1.3); Blood Urea Nitrogen 18 mg/dL (9-20); Calcium 8.7 mg/dL (8.4-10.2); Carbon Dioxide 26 mmol/L (22-30); Chloride 104 mmol/L (98-107); Estimated CRCL calculation 117 ml/min; Estimated Glomerular Filt Rate > 60; Glucose 147 mg/dL (65-110); Lipase 136 U/L (23-300); Potassium 3.5 mmol/L (3.4-5.0); Sodium 141 mmol/L (137-145)
[2024-06-10] MEDS: METOCLOPRAMIDE HCL INJ 10 MG/2 ML VIAL IV PUSH (03:21)
[2024-06-10 03:29] VITALS: BP 139/88; PULSE 94; RESP 20; O2SAT 100
[2024-06-10] MEDS: MORPHINE SULFATE (*CRX) 4 MG/ML INJ IV PUSH (04:33)
[2024-06-10 05:08] VITALS: BP 121/80; PULSE 100; RESP 20; TEMP 36.7; O2SAT 97
--- NOTE | 2024-06-10 05:28 | PC.NURSE ---
Upon receiving last dose of pain medication, pt informed Verna RN that he no longer wanted to be discharged due to feeling much better. AJ Bailey notified.
== END 2024-06-10 05:10 | disposition home or self-care (01) ==
PROVIDERS: Emergency Provider Physician Assistant; PCP Family Medicine
DX: R10.13 Epigastric pain (principal); R11.2 Nausea with vomiting, unspecified; K21.9 Gastro-esophageal reflux disease without esophagitis; I10 Essential (primary) hypertension; E78.5 Hyperlipidemia, unspecified; E11.9 Type 2 diabetes mellitus without complications; J45.909 Unspecified asthma, uncomplicated; E03.9 Hypothyroidism, unspecified; G47.30 Sleep apnea, unspecified
CPT/HCPCS: 36415; 80048; 80076; 83690; 85025; 93005; 96361; 96372; 96374; 96375; 99284; A9270; J0500; J1885; J2270; J2405; J2765